=== PATIENT | female | born 1940 ===

== ENCOUNTER 2017-08-08 07:22 | Day surgery (SDC) | payer MEDICARE, MEDICAID ==
[2015-07-24 09:54] VITALS: BMI 27.4
[2017-08-08] MEDS ORDERED: Lactated Ringer's 1,000 ML IV ONE (08:34)
[2017-08-08] MEDS ORDERED: Propofol 10 mg/ml Inj (20 ML) ONE (10:18)
[2017-08-08 11:36] VITALS: BP 101/59; PULSE 75; RESP 18; TEMP 97; O2SAT 95
== END 2017-08-08 11:37 | disposition home or self-care (01) ==
LOC: H.ENDO 07:22
PROVIDERS: ATTEND Internal Medicine Gastroenterology
DX: R13.10 Dysphagia, unspecified (principal); I25.10 Atherosclerotic heart disease of native coronary artery without angina pectoris; E11.9 Type 2 diabetes mellitus without complications; I10 Essential (primary) hypertension; K31.9 Disease of stomach and duodenum, unspecified
CPT/HCPCS: 43239; 82948; 88305; J2001; J2704; J7120